=== PATIENT | male | born 2000 | race Caucasian/White ===

== ENCOUNTER 2019-07-08 12:38 | Emergency (ER) | payer OTHER ==
[~2019-07-08] VITALS: Ht 177.8 cm; Wt 99.3 kg
--- NOTE | 2019-07-08 14:00 | REP ---
Four views left wrist: 07/08/2019. Indication: Pain following fall. Comparison: None. Findings: There is a mildly displaced fracture through the base of the left ulnar styloid process with mild adjacent soft tissue edema. No additional acute fractures are present. No lytic or blastic lesions are present. Impression: Distal left ulnar fracture as described. Electronically Signed by Bon Blum DO 07/08/2019 01:52 P
[2019-07-08 15:07] VITALS: BP 112/61
== END 2019-07-08 15:08 | disposition home or self-care (01) ==
LOC: M ED 12:38
DX: S52.612A Displaced fracture of left ulna styloid process, initial encounter for closed fracture (principal); W19.XXXA Unspecified fall, initial encounter; Y92.9 Unspecified place or not applicable; Y93.9 Activity, unspecified; Y99.9 Unspecified external cause status

== ENCOUNTER 2019-12-15 07:08 | Emergency (ER) | payer OTHER ==
[~2019-12-15] VITALS: Ht 175.3 cm; Wt 112.3 kg
--- NOTE | 2019-12-15 08:53 | REP ---
Bilateral inguinal sonography: History: Right groin pain. Findings: Bilateral sonography of the inguinal canals performed. There is no evidence of hernia, cyst, mass or adenopathy. Impression: Negative bilateral inguinal soft tissue sonography. Electronically Signed by Anatoly Thurston MD 12/15/2019 08:44 A
[2019-12-15 09:33] VITALS: BP 136/95
--- NOTE | 2019-12-15 11:08 | REP ---
EMERGENCY SCROTAL SONOGRAPHY: HISTORY: Scrotal pain. Palpable abnormality on the right. FINDINGS: High-resolution bilateral scrotal sonography shows no evidence of intratesticular mass lesion on either side. The right testis measures 4.2 x 2.0 x 3.0 cm. Left testicular dimensions are 3.8 x 1.9 x 2.7 cm. Doppler flow is present in both testes. Resistive indices are measured at 0.50 on the right and 0.54 on the left. The palpable abnormality corresponds to an epididymal cyst at the head of the epididymis on the right measuring 1.6 x 1.5 x 2.1 cm. There is no evidence of hernia, hydrocele, or varicocele. IMPRESSION: 2.1 cm epididymal cyst in the head of the epididymis on the right. Otherwise normal scrotal sonography. Doppler flow is present bilaterally in the testes. No intratesticular mass lesion is seen. Electronically Signed by Anatoly Thurston MD 12/15/2019 11:18 A
== END 2019-12-15 09:34 | disposition home or self-care (01) ==
LOC: M ED 07:08
DX: N50.3 Cyst of epididymis (principal)

== ENCOUNTER → 2019-12-18 | Outpatient (REF) | payer OTHER ==
[2019-12-19 17:10] LABS: AMORPHOUS SEDIMENT SMALL (NEGATIVE); APPEARANCE, URINE HAZY (CLEAR); BACTERIA, URINE AUTO NEGATIVE (NEGATIVE); BILIRUBIN, URINE AUTO NEGATIVE (NEGATIVE); BLOOD, URINE BLOOD NEGATIVE (NEGATIVE); COLOR, URINE YELLOW (YELLOW); GLUCOSE, URINE (UA) AUTO NEGATIVE (NEGATIVE); KETONE, URINE AUTO NEGATIVE (NEGATIVE); LEUKOCYTE ESTERASE, URINE AUTO NEGATIVE (NEGATIVE); MUCUS, URINE SMALL (NEGATIVE); NITRITE, URINE AUTO NEGATIVE (NEGATIVE); PROTEIN, URINE AUTO NEGATIVE (NEGATIVE); RBC, URINE AUTO 0 /HPF (0-3); SPECIFIC GRAVITY URINE AUTO 1.019 (1.002-1.035); SQUAMOUS EPITHELIAL CELL UR AU 0 /HPF (0-6); UROBILINOGEN, URINE AUTO 0.2 mg/dL (0.0-2.0); WBC, URINE AUTO 1 /HPF (0-3)
[2019-12-19 19:48] LABS: CHLAMYDIA DNA AMPLIFICATION NEGATIVE (NEGATIVE); GC DNA AMPLIFICATION NEGATIVE (NEGATIVE)
== END ==
LOC: M SMT 16:34
PROVIDERS: ATTEND Nurse Practitioner Family
DX: R10.30 Lower abdominal pain, unspecified (principal)

== ENCOUNTER → 2020-07-09 | Outpatient (CLI) | payer OTHER ==
--- NOTE | 2020-07-09 14:25 | REP ---
INDICATION: EPIDIDMYIL CYST. COMPARISON: Scrotal ultrasound dated 12/15/2019. TECHNIQUE: Multiple real-time and Doppler ultrasonographic images of the scrotum. FINDINGS: Chest the right testis measures 4.3 x 2.1 x 2.8 cm. The left testis measures 4.0 x 2.1 x 2.7 cm. The testes are normal size. There are no testicular masses or cysts. There is vascular flow in both testes with Doppler assessment. The Doppler resistive index in the parenchymal arteries of the right testis is 0.56 and left is 0.52. The right epididymal head measures 2.3 mm and left epididymal head measures 10.6 mm. There is a right epididymal head cyst measuring 2.5 x 2.0 x 1.3 cm. On the prior study this cyst measured 2.1 x 1.6 x 1.5 cm. There is no left epididymal head cyst as previously. IMPRESSION: There is a right epididymal head cyst as described. It has slightly increased in size from the prior study. There is no other interval change. The study is otherwise unremarkable. <Electronically signed by Mohit Oswald > 07/09/20 [id number]
== END ==
LOC: M RAD 11:38
PROVIDERS: ATTEND Urology
DX: N50.3 Cyst of epididymis (principal)

== ENCOUNTER → 2020-08-16 | Outpatient (CLI) | payer OTHER ==
[~2020-08-16] MED LIST: OXYC1TAB23 PO
[2020-08-16 13:50] LABS: HEMATOCRIT 48.2 % (42.0-52.0); HEMOGLOBIN 15.9 g/dl (13.5-17.5); MEAN CORPUSCULAR HEMOGLOBIN 28.5 pg (27.0-33.0); MEAN CORPUSCULAR VOLUME 86.4 fl (80.0-96.0); PLATELET COUNT, AUTOMATED 254 10^3/uL (150-450); RED BLOOD COUNT 5.58 10^6/uL (4.30-6.10); WHITE BLOOD COUNT 4.9 10^3/uL (4.0-10.0)
[2020-08-16 14:00] LABS: INR 0.94; PROTHROMBIN TIME 12.8 SECONDS (12.5-14.3)
[2020-08-16 14:01] LABS: PARTIAL THROMBOPLASTIN TIME 26.1 SECONDS (24.2-38.5)
[2020-08-16 14:15] LABS: BLOOD UREA NITROGEN 22 MG/DL (7-18); CALCIUM LEVEL 9.6 MG/DL (8.5-10.1); CARBON DIOXIDE LEVEL 29 MEQ/L (21-32); CHLORIDE LEVEL 105 MEQ/L (98-107); CREATININE FOR GFR 1.04 MG/DL (0.70-1.30); GLOMERULAR FILTRATION RATE > 60.0 (>60); GLUCOSE, FASTING 84 MG/DL (70-100); POTASSIUM SERUM 4.4 MEQ/L (3.5-5.1); SODIUM LEVEL 138 MEQ/L (136-145)
== END ==
LOC: M LAB 12:07
PROVIDERS: ATTEND Urology
DX: N50.3 Cyst of epididymis (principal)

== ENCOUNTER 2020-08-20 06:29 | Day surgery (SDC) | payer OTHER ==
[~2020-08-20] VITALS: Ht 177.8 cm; Wt 111.1 kg
[~2020-08-20 06:29] MED LIST changes: +LR 1,000 ML IV ONE; -OXYC1TAB23 PO; +ceFAZolin SOD 2 GM in IV 1 EA IV ONE
--- OUTSIDE RECORDS SUMMARY | 2020-08-20 06:33 | CCD ---
Author Author [facility] Organization [facility] Address Unknown Phone Unavailable Support Name Relationship Address Phone [facility] Next Of Kin [address] [place] [address] Unavailable BILLY RING Next Of Kin [address] [phone] billy ring [place], [place] Unavailabl e Re-disclosure Warning The records that you are about to access may contain information from federally-assisted alcohol or drug abuse programs. If such information is present, then the following federally mandated warning applies: This information has been disclosed to you from records protected by federal confidentiality rules (42 CFR part 2). The federal rules prohibit you from making any further disclosure of this information unless further disclosure is expressly permitted by the written consent of the person to whom it pertains or as otherwise permitted by 42 CFR part 2. A general authorization for the release of medical or other information is NOT sufficient for this purpose. The Federal rules restrict any use of the information to criminally investigate or prosecute any alcohol or drug abuse patient.The records that you are about to access may contain highly sensitive health information, the redisclosure of which is protected by Article 27-F of the [facility] Public Health law. If you continue you may have access to information: Regarding HIV / AIDS; Provided by facilities licensed or operated by the [facility] Office of Mental Health; or Provided by the [facility] Office for People With Developmental Disabilities. If such information is present, then the following [facility] mandated warning applies: This information has been disclosed to you from confidential records which are protected by state law. State law prohibits you from making any further disclosure of this information without the specific written consent of the person to whom it pertains, or as otherwise permitted by law. Any unauthorized further disclosure in violation of state law may result in a fine or chcf sentence or both. A general authorization for the release of medical or other information is NOT sufficient authorization for further disc losure. Encounters Encounter Providers Location Date Indications Data Source(s ) [place] [address] [address] 06/28/2020 12:00:00 AM EST eCW1 ([facility]) [place] [address] [address] 05/21/2020 12:00:00 AM EDT eCW1 ([facility]) [place] [address] [address] 05/21/2020 12:00:00 AM EDT eCW1 ([facility]) [place] [address] [address] 02/10/2020 12:00:00 AM EDT eCW1 ([facility]) [place] [address] [address] 01/05/2020 12:00:00 AM EDT eCW1 ([facility]) [facility] [address] [address] 01/02/2020 12:00:00 AM EDT eCW1 ([facility]) Outpatient 12/30/2019 05:51:00 AM EDT [facility] [place] [address] [address] 12/18/2019 12:00:00 AM EDT eCW1 ([facility]) Medications Medication Brand Name Start Date Product Form Dose Route Admi nistrative Instructions Pharmacy Instructions Status Indications Reaction Description Data Source(s) meloxicam 7.5 MG Oral Tablet Meloxicam 7.5 MG Meloxicam 7.5 MG 01/05/2020 12:00:00 AM EDT 1.0 {tablet} active Me loxicam 7.5 MG eCW1 ([facility]) meloxicam 7.5 MG Oral Tablet Meloxicam 7.5 MG Meloxicam 7.5 MG 01/05/2020 12:00:00 AM EDT 1.0 {tablet} active Me loxicam 7.5 MG eCW1 ([facility]) meloxicam 7.5 MG Oral Tablet Meloxicam 7.5 MG Meloxicam 7.5 MG 01/05/2020 12:00:00 AM EDT 1.0 {tablet} active Me loxicam 7.5 MG eCW1 ([facility]) meloxicam 7.5 MG Oral Tablet Meloxicam 7.5 MG Meloxicam 7.5 MG 01/05/2020 12:00:00 AM EDT 1.0 {tablet} active Me loxicam 7.5 MG eCW1 ([facility]) meloxicam 7.5 MG Oral Tablet Meloxicam 7.5 MG Meloxicam 7.5 MG 01/05/2020 12:00:00 AM EDT 1.0 {tablet} active Me loxicam 7.5 MG eCW1 ([facility]) Ciprofloxacin 500 MG Oral Tablet Ciprofloxacin HCl 500 MG Ciprofloxacin HCl 500 MG 12/18/2019 12:00:00 AM EDT active 1 tablet eCW1 ([facility]) Ciprofloxacin 500 MG Oral Tablet Ciprofloxacin HCl 500 MG Ciprofloxacin HCl 500 MG 12/18/2019 12:00:00 AM EDT 1.0 {tablet} suspe nded Ciprofloxacin HCl 500 MG eCW1 ([facility]) Ciprofloxacin 500 MG Oral Tablet Ciprofloxacin HCl 500 MG Ciprofloxacin HCl 500 MG 12/18/2019 12:00:00 AM EDT 1.0 {tablet} suspe nded Ciprofloxacin HCl 500 MG eCW1 ([facility]) Ciprofloxacin 500 MG Oral Tablet Ciprofloxacin HCl 500 MG Ciprofloxacin HCl 500 MG 12/18/2019 12:00:00 AM EDT 1.0 {tablet} suspe nded Ciprofloxacin HCl 500 MG eCW1 ([facility]) Ciprofloxacin 500 MG Oral Tablet Ciprofloxacin HCl 500 MG Ciprofloxacin HCl 500 MG 12/18/2019 12:00:00 AM EDT 1.0 {tablet} suspe nded Ciprofloxacin HCl 500 MG eCW1 ([facility]) Ciprofloxacin 500 MG Oral Tablet Ciprofloxacin HCl 500 MG Ciprofloxacin HCl 500 MG 12/18/2019 12:00:00 AM EDT 1.0 {tablet} suspe nded Ciprofloxacin HCl 500 MG eCW1 ([facility]) Insurance Providers Payer name Policy type / Coverage type Policy ID Covered green party ID Covered green party's relationship to rdz Policy Rdz Plan Information [facility] ACTIVE DUTY [id number] SP [id number] [employer] [facility] REG O [id number] S [id number] Problems, Conditions, and Diagnoses Code Display Name Description Problem Type Effective Dates Data Source(s) Z01.818 Pre-procedure evaluation check Preop testing Problem 05/21/2020 12:00:00 AM EDT eCW1 ([facility]) N50.3 Epididymal cyst Epididymal cyst Problem 01/05/2020 12:0 0:00 AM EDT eCW1 ([facility]) R10.30 Groin pain Groin pain Problem 12/18/2019 12:00:00 AM ED T eCW1 ([facility]) R10.30 Groin pain Groin pain Problem 12/18/2019 12:00:00 AM ED T eCW1 ([facility]) Social History Code Duration Value Status Description Data Source(s ) Smoking 05/21/2020 12:00:00 AM EDT Never Smoker completed Never S moker eCW1 ([facility]) Smoking 05/21/2020 12:00:00 AM EDT Never Smoker completed Never S moker eCW1 ([facility]) Smoking 05/21/2020 12:00:00 AM EDT Never Smoker completed Never S moker eCW1 ([facility]) Smoking 02/10/2020 12:00:00 AM EDT Never Smoker completed Never S moker eCW1 ([facility]) Smoking 01/05/2020 12:00:00 AM EDT Never Smoker completed Never S moker eCW1 ([facility]) Vital Signs ID Date Data Source UNK Name Value Range Interpretation Code Description Data Source(s) Diastolic blood pressure mm[Hg] eCW1 ([facility]) Systolic blood pressure 128 mm[Hg] 128 mm[Hg] e CW1 ([facility]) Body temperature [degF] eCW1 ([facility]) Respiratory rate 18 /min 18 /min eCW1 ([facility]) Heart rate 77 /min 77 /min eCW1 ([facility]) Body mass index (BMI) [Ratio] 36.44 kg/m2 36.44 kg/m2 eCW1 ([facility]) Body height 70 [in_i] 70 [in_i] eCW1 ([facility]) Body weight 254 [lb_av] 254 [lb_av] eCW1 ([facility]) Diastolic blood pressure 78 mm[Hg] 78 mm[Hg] eCW1 ([facility]) Systolic blood pressure 132 mm[Hg] 132 mm[Hg] e CW1 ([facility]) Body temperature 97.6 [degF] 97.6 [degF] eCW1 ( [facility]) Respiratory rate 18 /min 18 /min eCW1 ([facility]) Heart rate 86 /min 86 /min eCW1 ([facility]) Body mass index (BMI) [Ratio] 35.87 kg/m2 35.87 kg/m2 eCW1 ([facility]) Body height 70 [in_i] 70 [in_i] eCW1 ([facility]) Body weight 250 [lb_av] 250 [lb_av] eCW1 ([facility]) Diastolic blood pressure 68 mm[Hg] 68 mm[Hg] eCW1 ([facility]) Systolic blood pressure 122 mm[Hg] 122 mm[Hg] e CW1 ([facility]) Body temperature 97.8 [degF] 97.8 [degF] eCW1 ( [facility]) Respiratory rate 18 /min 18 /min eCW1 ([facility]) Heart rate 82 /min 82 /min eCW1 ([facility]) Body mass index (BMI) [Ratio] 36.21 kg/m2 36.21 kg/m2 eCW1 ([facility]) Body height 70 [in_i] 70 [in_i] eCW1 ([facility]) Body weight 252.4 [lb_av] 252.4 [lb_av] eCW1 ([facility]) Diastolic blood pressure mm[Hg] eCW1 ([facility]) Systolic blood pressure 118 mm[Hg] 118 mm[Hg] e CW1 ([facility]) Body temperature 97.9 [degF] 97.9 [degF] eCW1 ( [facility]) Respiratory rate 17 /min 17 /min eCW1 ([facility]) Heart rate 84 /min 84 /min eCW1 ([facility]) Body mass index (BMI) [Ratio] 35.72 kg/m2 35.72 kg/m2 eCW1 ([facility]) Body height 70 [in_us] 70 [in_us] eCW1 ([facility]) Body weight Measured 249 [lb_av] 249 [lb_av] eC W1 ([facility]) Patient Treatment Plan of Care Planned Activity Planned Date Details Description Data Source (s) meloxicam 7.5 MG Oral Tablet 01/05/2020 12:00:00 AM EDT eCW1 ([facility]) meloxicam 7.5 MG Oral Tablet 01/05/2020 12:00:00 AM EDT eCW1 ([facility]) Ciprofloxacin 500 MG Oral Tablet 12/18/2019 12:00:00 AM EDT eCW1 ([facility])
--- OUTSIDE RECORDS SUMMARY | 2020-08-20 06:33 | CCD ---
Author Author [facility] Organization [facility] Address Unknown Phone Unavailable Care Team Providers Care Electric Appliance Installer Name Role Phone HangGrayson betancourt Unavailable PROBLEMS Type Condition ICD9-CM Code [id number] Code Onset Dates Condition S tatus SNOMED Code Notes Problem Epididymal cyst N50.3 Active 84507531 Problem Preop testing Z01.818 Active 232994399 Problem Groin pain R10.30 Active 274811959 ALLERGIES No Known Allergies ENCOUNTERS from 1998 to 2020-07-03 Encounter Location Date Provider Diagnosis [facility] Urology [address] [address] May Grayson Mauricio IMMUNIZATIONS No Information SOCIAL HISTORY Tobacco Use: Social History Observation Description Date Details (start date - stop date) Never Smoker Sex Assigned At : Social History Observation Description Sex Assigned At Unknown Language: Question Answer Notes Languages spoken: Kazakh Nondenominational: Question Answer Notes Nondenominational No hindu beliefs that would impact health care. Sexual Hx: Question Answer Notes Had sex in the last 12 months (vaginal, oral, or anal)? Yes Have you ever had an STD? No with Women only Use protection? No Alcohol Screening: Question Answer Notes Did you have a drink containing alcohol in the past year? Ye s Points 2 Interpretation Negative How often did you have six or more drinks on one occas ion in the past year? Never (0 points) How many drinks did you have on a typica l day when you were drinking in the past year? 1 or 2 (0 points) How often did you have a drink containing alcohol in t he past year? Two to four times a month (2 points) Tobacco Use: Question Answer Notes Are you a: never smoker REASON FOR REFERRAL No Information VITAL SIGNS No information MEDICATIONS Medication SIG (Take, Route, Frequency, Duration) Notes Start Da te End Date Status Meloxicam 7.5 MG 1 tablet Orally Once a day for 30 day(s) Dec, Active Ciprofloxacin HCl 500 MG 1 tablet Orally every 12 hrs for 14 day s November, Not-Taking PROCEDURES No Information RESULTS No Results REASON FOR VISIT Scrotal U/S MEDICAL (GENERAL) HISTORY Type Description Date Surgical History No Surgical history information Goals Section No Information Health Concerns No Information MEDICAL EQUIPMENT No Information MENTAL STATUS No Information FUNCTIONAL STATUS No Information ASSESSMENTS No Information PLAN OF TREATMENT No Information Insurance Providers Payer Name Payer Address Payer Phone Insured Name Patient Relati onship to Insured Coverage Start Date Coverage End Date [facility] ACTIVE DUTY S HEALTH INSURANCE [address] [place] [address] KAITLIN HOLLAND self
--- OUTSIDE RECORDS SUMMARY | 2020-08-20 06:33 | CCD ---
Author Author [facility] Organization [facility] Address Unknown Phone Unavailable Care Team Providers Care Senior Front End Developer Name Role Phone Grayson Mauricio Unavailable PROBLEMS Type Condition ICD9-CM Code [id number] Code Onset Dates Condition S tatus SNOMED Code Notes Problem Epididymal cyst N50.3 Active 95710337 Problem Preop testing Z01.818 Active 205902258 Problem Groin pain R10.30 Active 022643092 ALLERGIES No Known Allergies ENCOUNTERS from 1998 to 2020-05-28 Encounter Location Date Provider Diagnosis [facility] Urology [address] [place] [address] Apr Grayson Mauricio Epididymal cyst N50.3 and Preop testing Z01.818 IMMUNIZATIONS No Information SOCIAL HISTORY Tobacco Use: Social History Observation Description Date Details (start date - stop date) Never Smoker Sex Assigned At : Social History Observation Description Sex Assigned At Unknown Language: Question Answer Notes Languages spoken: [place] Christianity: Question Answer Notes Christianity No anabaptist beliefs that would impact health care. Sexual [...] REASON FOR REFERRAL No Information VITAL SIGNS Weight 254 lbs Apr, Height 70 in Apr, BMI 36.44 kg/m2 Apr, Heart Rate 77 /min Apr, Respiratory Rate 18 /min Apr, Temperature 97..9 degrees Fahrenheit Apr, Oximetry 97 Apr, Blood pressure systolic 128 mm Hg Apr, Blood pressure diastolic 62 MANUAL mm Hg Apr, MEDICATIONS Medication SIG (Take, Route, Frequency, Duration) Start Date En d Date Status Meloxicam 7.5 MG 1 tablet Orally Once a day for 30 day(s) Dec, 020 Active Ciprofloxacin HCl 500 MG 1 tablet Orally every 12 hrs for 14 day s November, Not-Taking PROCEDURES No Information RESULTS No Results REASON FOR VISIT fu/3 months MEDICAL (GENERAL) HISTORY Type Description Date Surgical History No Surgical history information Goals Section No Information Health Concerns No Information MEDICAL EQUIPMENT No Information MENTAL STATUS No Information FUNCTIONAL STATUS No Information ASSESSMENTS Encounter Date Diagnosis Notes Apr, Preop testing (ICD-10 - Z01.818) Apr, Epididymal cyst (ICD-10 - N50.3) PLAN OF TREATMENT Treatment Notes Assessment Notes Clinical Notes Epididymal cyst - informed consent s igned for surgery after discussing the possibility that his abdominal pain might not be treated by this- will get a scrotal US prior to surgery- patient will need preop CBC, BMP, coags- per patient request will schedule surgery after 08/03/2020 Treatment Notes Test Name Order Date CBC - Complete Blood Count 2020-05-28 PT & APTT 2020-05-28 Basic Metabolic Profile (BMP) 2020-05-28 [facility] Scrotal, US 2020-05-28 Next Appt Details surgery Reason: Insurance Providers Payer Name Payer Address Payer Phone Insured Name Patient Relati onship to Insured Coverage Start Date Coverage End Date [facility] ACTIVE DUTY S HEALTH INSURANCE [address] [place] [address] KAITLIN HOLLAND
--- OUTSIDE RECORDS SUMMARY | 2020-08-20 06:33 | CCD ---
Author Author [facility] Organization [facility] [employer] [facility] Address Unknown Phone Unavailable Care Team Providers Care Broomcorn Seeder Name Role Phone HangGrayson betancourt Unavailable PROBLEMS Type Condition ICD9-CM Code [id number] Code Onset Dates Condition S tatus SNOMED Code Notes Problem Epididymal cyst N50.3 Active 47879472 Problem Preop testing Z01.818 Active 833605163 Problem Groin pain R10.30 Active 755178813 ALLERGIES No Known Allergies ENCOUNTERS from 1998 to 2020-05-24 Encounter Location Date Provider Diagnosis [facility] Urology [address] [place] [address] Apr Grayson Mauricio IMMUNIZATIONS No Information SOCIAL HISTORY Tobacco Use: Social History Observation Description Date Details (start date - stop date) Never Smoker Sex Assigned At : Social History Observation Description Sex Assigned At Unknown Language: Question Answer Notes Languages spoken: Pashto Denominational: Question Answer Notes Denominational No hinduism beliefs that would impact health care. Sexual [...] Orally Once a day for 30 day(s) 08 Dec, 020 Active Ciprofloxacin HCl 500 MG 1 tablet Orally every 12 hrs for 14 day s November, Not-Taking PROCEDURES No Information RESULTS No Results REASON FOR VISIT Surgery Date MEDICAL (GENERAL) HISTORY Type Description Date Surgical History No Surgical history information Goals Section No Information Health Concerns No Information MEDICAL EQUIPMENT No Information MENTAL STATUS No Information FUNCTIONAL STATUS No Information ASSESSMENTS No Information PLAN OF TREATMENT No Information Insurance Providers Payer Name Payer Address Payer Phone Insured Name Patient Relati onship to Insured Coverage Start Date Coverage End Date [facility] ACTIVE DUTY S HEALTH INSURANCE [address] [place] [address] KAITLIN HOLLAND
[2020-08-20] MEDS ORDERED: LIDOCAINE 1% SDV 30ML VIAL As Ordered ONE (08:59)
[2020-08-20] MEDS ORDERED: BUPIVACAINE HCL 0.25% 30ML VIAL As Ordered ONE (08:59)
[2020-08-20] MEDS ORDERED: BACITRACIN OINTMENT 30GM TUBE As Ordered ONE (08:59)
[2020-08-20] MEDS ORDERED: propofoL 200 MG/20 ML VIAL As Ordered ONE (09:08)
[2020-08-20] MEDS ORDERED: MIDAZOLAM INJ 2MG/2ML VIAL (J2250 PER 1MG) As Ordered ONE (09:08)
[2020-08-20] MEDS ORDERED: LIDOCAINE 2% 100MG/5ML SDV (FOR ANES.) As Ordered ONE (09:08)
[2020-08-20] MEDS ORDERED: fentaNYL 100 MCG/2 ML INJECTION (J3010) As Ordered ONE ×2 (09:08→10:03)
[2020-08-20] MEDS ORDERED: dexameTHASONE 4 MG/ML 1ML VIAL (J1100 PER 1MG) As Ordered ONE (09:41)
[2020-08-20] MEDS ORDERED: ONDANSETRON 4MG/2ML VIAL As Ordered ONE (09:41)
[2020-08-20] MEDS ORDERED: OXYC1TAB23 PO (10:50)
[2020-08-20] MEDS ORDERED: LR 1,000 ML IV SCH (11:00)
[2020-08-20] MEDS ORDERED: MORPHINE 2 MG/ML 1ML VIAL (J2270) IV PRN (11:00)
[2020-08-20] MEDS ORDERED: ONDANSETRON 4MG/2ML VIAL IV PRN (11:00)
[2020-08-20] MEDS ORDERED: METOCLOPRAMIDE INJ 10MG/2ML VIAL (J2765 PER 1) IV PRN (11:00)
[2020-08-20] MEDS ORDERED: PERCOCET 5MG/325MG TAB PO PRN (11:00)
[2020-08-20] MEDS: PERCOCET 5MG/325MG TAB PO PRN ×2 (11:04→11:33)
[2020-08-20] MEDS: fentaNYL 100 MCG/2 ML INJECTION (J3010) IV PRN ×4 (11:12→11:28)
[2020-08-20 13:20] VITALS: BP 121/64
--- NOTE | 2020-08-20 17:50 | RO ---
OPERATIVE NOTE DATE OF OPERATION: 08/20/2020 PREOPERATIVE DIAGNOSIS: Right epididymal cyst. POSTOPERATIVE DIAGNOSIS: Right epididymal cyst. PROCEDURE: Removal of right epididymal cyst. SURGEON: Grayson Mauricio MD BUSINESS PROGRAMMER: None. ANESTHESIA: General. OPERATIVE INDICATION: This is a 20-year-old male with a 1.5 to 2 cm right epididymal cyst for which he wanted treatment. He was brought to the operating room today for surgery. DESCRIPTION OF PROCEDURE: The patient was brought to the operating room and general anesthesia induced. Prophylactic antibiotics were infused. He was then placed in the supine position and prepped and draped in the usual sterile fashion. At this point, an approximately 3 to 4 cm transverse incision was made over the right hemiscrotum. We then dissected down through the scrotal wall layers and then the testicle was delivered outside of the right hemiscrotum. The tunica vaginalis was opened. The epididymal cyst was identified at the head of the epididymis. It was then carefully dissected off the epididymal head using a combination of scissors and electrocautery. While doing this, the cyst was incidentally punctured and clear fluid drained. The cyst wall was then completely excised and sent off for pathological analysis. We then checked for hemostasis and any areas of bleeding were controlled with electrocautery. Once satisfied with hemostasis, the testicle was then delivered back inside the right hemiscrotum in it normal anatomic position. We then closed the dartos muscle using running 3-0 chromic suture. The skin was then closed with interrupted 2-0 chromic suture. Dressings were applied and this marked conclusion of the procedure. The patient was then awakened from anesthesia and transported to the recovery room in stable condition. ESTIMATED BLOOD LOSS: 5 ml. COMPLICATIONS: None. SPECIMENS: Right epididymal cyst wall. PLAN: The patient will follow up in urology clinic in a few weeks for a postoperative visit. PHILOMENA
== END 2020-08-20 14:21 | disposition home or self-care (01) ==
LOC: M SDC 06:29
PROVIDERS: ATTEND Urology
DX: N50.3 Cyst of epididymis (principal); E66.9 Obesity, unspecified
CPT/HCPCS: 54830; 88304; J1100; J2250; J2405; J3010

== ENCOUNTER → 2021-03-28 | Outpatient (REF) ==
[~2021-03-28] MED LIST changes: -LR 1,000 ML IV ONE; +OXYC1TAB23 PO; -ceFAZolin SOD 2 GM in IV 1 EA IV ONE
--- NOTE | 2021-03-28 10:03 | REP ---
INDICATION: INJURY COMPARISON: 07/08/2019 TECHNIQUE: AP, lateral, bilateral oblique views left wrist. FINDINGS: The carpal bones, surrounding osseous structures, soft tissues, and joint spaces are normal. There is no evidence for acute fracture or dislocation. Old ulnar styloid fracture again noted. No subcutaneous emphysema or radiodense foreign body. IMPRESSION: No acute fracture or dislocation. <Electronically signed by Vlad Chinchilla > 03/28/21 0943
== END ==
LOC: M PLAIMG 09:45
PROVIDERS: ATTEND Internal Medicine
DX: S69.92XA Unspecified injury of left wrist, hand and finger(s), initial encounter (principal); Y92.89 Other specified places as the place of occurrence of the external cause; Y93.89 Activity, other specified; Y99.8 Other external cause status